=== PATIENT | male | born 1965 | race Caucasian/White ===

== ENCOUNTER 2020-07-01 07:32 | Emergency (ER) | payer MEDICAID ==
[2020-07-01 07:49] VITALS: BP 132/87
[2020-07-01] MEDS ORDERED: LIDOcaine 1% W/epiNEPHrine 1:100,000 20ml vial ONE (08:00)
[2020-07-01] MEDS ORDERED: sulfamethoxazole/trimethoprim DS (800/160mg) tablet PO ONE (08:30)
[2020-07-01] MEDS ORDERED: ondansetron 4mg rapidly disintigrating tab PO ONE (08:30)
[2020-07-01] MEDS ORDERED: VALA500T41 PO (08:59)
[2020-07-01] MEDS ORDERED: SULF1TAB49 PO (08:59)
== END 2020-07-01 09:55 | disposition home or self-care (01) ==
LOC: ER 07:34
DX: F15.90 Other stimulant use, unspecified, uncomplicated (principal); Z56.0 Unemployment, unspecified; Z59.0 Homelessness; Z79.899 Other long term (current) drug therapy
CPT/HCPCS: 10060; 99283